=== PATIENT | female | born 1965 | race Caucasian/White ===

== ENCOUNTER → 2017-04-21 | Outpatient (CLI) | payer MEDICARE ==
[~2017-04-21] MED LIST: ANTIBIOTIC PO; ASPIRIN 81MG TA81 MG PO; ASPIRIN325 M1 PO; CARVEDILOL3.125 M1 PO; COUMADIN4 MG PO; DEXAMETHASONE4 MG PO; DOCUSATE SOD100 MG PO; FLOVENT0.044 MG/A IH; FLUOXETINE20 M2 PO; GABAPENTIN300 M1 PO; HYDROCHLOROTH12.5 M1 PO; IBU800 M1 PO; LASIX20 MG PO; LIPITOR40 MG PO; LISINOPRIL 5MG T5 MG PO; LISINOPRIL5 MG NG; MECLIZINE25 MG PO; MELOXICAM15 MG PO; METOPROLOL 25 M25 MG PO; MONODOX100 MG; NAPROSYN 500MG500 MG PO; NITROGLYCERIN0.4 MG SL; PERCOCET 5/3251 EACH PO; PLAVIX 75MG TAB75 MG; PRAVASTATIN 40M40 MG PO; PROAIR HFA0.09 MG/AC IH; PROMETHAZINE W180 ML PO; PROTONIX 40MG T40 MG PO; ROBAXIN-750750 MG PO; TYLENOL325 MG PO; ULTRAM50 MG PO; XANAX 0.25MG0.25 MG PO
--- NOTE | 2017-04-21 10:45 | RADIOLOGY REPORT PS360 ---
EXAM: Barium swallow/esophagram. INDICATION: Dysphasia ORDERING PHYSICIAN: Severo Raymond MD PATIENT AGE: 52 years COMPARISON: None TECHNIQUE: In the upright position the patient was observed to swallow barium in both the AP and lateral view. The cervical esophagus was examined under fluoroscopy with images obtained. The patient was then placed prone in the right anterior oblique position and was observed to swallow barium with Valsalva technique . FLUOROSCOPY TIME: 1 minute and 3 seconds FINDINGS: There was no evidence of aspiration. There was normal peristalsis. No filling defects or mucosal abnormalities. No masses or strictures. No hernias IMPRESSION: Negative barium swallow.
== END ==
LOC: RAD 09:45
DX: R13.10 Dysphagia, unspecified (principal)

== ENCOUNTER → 2017-08-04 | Outpatient (CLI) | payer MEDICARE ==
--- NOTE | 2017-08-04 10:23 | RADIOLOGY REPORT PS360 ---
US THYROID HISTORY: THYROMEGALY ORDERING PHYSICIAN: RENEA ONTIVEROS PATIENT AGE: 52 years COMPARISON: None FINDINGS: The right lobe is 4.6 x 1.2 x 1.6 cm. A solid appearing 5 mm nodules present in the upper pole. A partially cystic nodules present in the mid polar region at 6 mm. The left lobe is 4.5 x 1.3 x 1.4 cm. A 9 mm cyst is present in the upper pole. A partially cystic 6 mm nodule is present in the mid polar region. IMPRESSION: Mildly enlarged thyroid gland with bilateral nodules which have a low level of suspicion for malignancy. Consider 6 month follow-up to confirm short-term stability
--- NOTE | 2017-08-12 14:11 | RADIOLOGY REPORT PS360 ---
DIG MAMM-SCREEN SHANTI W/CAD CAD Screening COMPARISON: Digital mammograms 06/01/2016 and 11/22/2014 INDICATION: There is a history of breast cancer patient's maternal great aunt. TECHNIQUE: Standard CC and MLO images were obtained. R2 CAD reviewed. FINDINGS: Scattered fibroglandular densities are seen throughout both breasts. Again noted is a defibrillator projecting over the axillary tail and axilla left breast. There is a possible new asymmetric density central portion right breast only deftly seen on the CC projection. There are no suspicious microcalcifications. There is a benign-appearing calcination right breast. IMPRESSION: Fibrofatty parenchyma with possible new asymmetric density right breast possibly a summation shadow since it is not deftly seen on the orthogonal MLO projection recommend the patient return for spot compression CC view and 90 degrees lateral view for additional evaluation and ultrasound if this proves to be a true lesion. BI-RADS CATEGORY: 0_Incomplete: Need additional imaging RECOMMENDED FOLLOWUP: ADD ADDITIONAL IMAGING (A letter has been sent to the patient regarding results of the study.)
== END ==
LOC: RAD 09:30
DX: E01.0 Iodine-deficiency related diffuse (endemic) goiter (principal); Z12.31 Encounter for screening mammogram for malignant neoplasm of breast
CPT/HCPCS: G0202